=== PATIENT | female | born 1995 | race African-American/Black ===

== ENCOUNTER 2016-11-30 19:11 | Emergency (ER) | payer OTHER ==
[~2016-11-30] VITALS: Ht 160 cm; Wt 59.0 kg
[2016-11-30 19:11] VITALS: BP 117/84
[2016-11-30] MEDS ORDERED: INDO25CA PO (19:43)
[2016-11-30] MEDS ORDERED: INDOMETHACIN 25 MG CAP PO ONE (19:45)
== END 2016-11-30 20:22 | disposition home or self-care (01) ==
LOC: M ED 19:50
DX: R07.89 Other chest pain (principal)

== ENCOUNTER 2016-12-09 15:22 | Emergency (ER) | payer OTHER ==
[~2016-12-09] VITALS: Ht 160 cm; Wt 51.7 kg
[~2016-12-09 15:22] MED LIST: INDO25CA PO
[2016-12-09 16:27] VITALS: BP 115/77
== END 2016-12-09 16:29 | disposition home or self-care (01) ==
LOC: M ED 16:22
DX: G44.309 Post-traumatic headache, unspecified, not intractable (principal); M94.0 Chondrocostal junction syndrome [Tietze]

== ENCOUNTER 2017-01-05 12:20 | Emergency (ER) | payer OTHER ==
[~2017-01-05] VITALS: Ht 160 cm; Wt 68.0 kg
[2017-01-05] MEDS ORDERED: ONDANSETRON 4MG/2ML VIAL (J2405) IV ONE (13:45)
[2017-01-05] MEDS ORDERED: KETOROLAC 30 MG/ML VIAL (J1885) IV ONE (13:45)
[2017-01-05] MEDS ORDERED: NS 1,000 ML IV ONE (13:45)
[2017-01-05 14:28] LABS: BASO % 0.9 % (0.0-1.0); EOS # 0.1 K/mm3 (0.0-0.50); EOS % 2.3 % (0.0-3.0); LARGE UNSTAINED CELL # 0.1 K/mm3 (0.0-0.4); LYMPH # 1.4 K/mm3 (1.5-6.5); LYMPH % 38.1 % (24.0-44.0); MEAN CORPUSCULAR HEMOGLOBIN 29.4 pg (27.0-33.0); MEAN CORPUSCULAR HGB CONC 34.9 g/dl (32.0-36.5); MEAN CORPUSCULAR VOLUME 84.3 fl (80.0-96.0); MONO # 0.2 K/mm3 (0.0-0.8); MONO % 5.7 % (0.0-5.0); NEUTROPHILS # 1.8 K/mm3 (1.8-7.7); PLATELET COUNT, AUTOMATED 231 k/mm3 (150-450); RED CELL DISTRIBUTION WIDTH 11.9 % (11.5-14.5); WHITE BLOOD COUNT 3.5 K/mm3 (4.0-10.0)
[2017-01-05 15:09] LABS: ALBUMIN 4.1 GM/DL (3.2-5.2); ALBUMIN/GLOBULIN RATIO 1.08 (1.00-1.93); ALKALINE PHOSPHATASE 73 U/L (45-117); ALT/SGPT 29 U/L (12-78); AMYLASE 62 U/L (25-115); ANION GAP 8 MEQ/L (8-16); AST/SGOT 22 U/L (15-37); BILIRUBIN,DIRECT < 0.1 MG/DL (0.0-0.2); BILIRUBIN,TOTAL 0.3 MG/DL (0.2-1.0); BLOOD UREA NITROGEN 9 MG/DL (7-18); CARBON DIOXIDE LEVEL 28 MEQ/L (21-32); CHLORIDE LEVEL 104 MEQ/L (98-107); CREATININE FOR GFR 0.77 MG/DL (0.55-1.02); GLOMERULAR FILTRATION RATE > 60.0 (>60); GLUCOSE, FASTING 91 MG/DL (70-105); POTASSIUM SERUM 3.9 MEQ/L (3.5-5.1); SODIUM LEVEL 140 MEQ/L (136-145); TOTAL PROTEIN 7.9 GM/DL (6.4-8.2)
[2017-01-05] MEDS ORDERED: ZOFR4TAB3 PO (15:33)
[2017-01-05] MEDS ORDERED: BACT800T5 PO (15:33)
[2017-01-05 15:38] VITALS: BP 98/58
== END 2017-01-05 15:51 | disposition home or self-care (01) ==
LOC: M ED 13:58
DX: N30.00 Acute cystitis without hematuria (principal); G89.29 Other chronic pain; F99 Mental disorder, not otherwise specified
CPT/HCPCS: 80048; 80076; 81001; 81025; 82150; 83690; 85025; 96361; 96374; 96375; 99283; J1885; J2405

== ENCOUNTER 2018-05-04 14:48 | Emergency (ER) | payer OTHER | END 2018-05-04 16:45 | disposition home or self-care (01) | LOC: M ED 14:48 | DX: J06.9 Acute upper respiratory infection, unspecified (principal) | CPT/HCPCS: 71046 ==